=== PATIENT | male | born 1980 | race Caucasian/White ===

== ENCOUNTER 2022-11-20 07:57 | Emergency (ER) | payer SELFPAY ==
--- NOTE | 2022-11-20 08:24 | PC.NURSE ---
Pt reports his bleeding has almost stopped and he is going to his ENT office.
== END 2022-11-20 08:24 | disposition left against medical advice (07) ==
LOC: ANHED 08:49
DX: Z53.21 Procedure and treatment not carried out due to patient leaving prior to being seen by health care provider (principal)
CPT/HCPCS: 99199

== ENCOUNTER 2022-11-23 14:42 | Emergency (ER) | payer BC, SELFPAY ==
[2022-11-23 14:54] VITALS: BP 64/39; PULSE 64; RESP 18; TEMP 36.7; O2SAT 100
--- NOTE | 2022-11-23 15:00 | ED.EPISTAXIS ---
HPI - Epistaxis General Chief complaint: Epistaxis Stated complaint: nosebleed Time Seen by Provider: 11/23/22 15:00 History of Present Illness HPI Narrative: Patient is a 42-year-old male presenting with epistaxis. Patient reports having a septoplasty earlier this month for a deviated septum. States that he had to go back to the OR again following the procedure to have some packing removed. Since these procedures, patient has had intermittent nosebleeds. He has been calling his plastic surgeon who keeps telling him to just use more Afrin. Unfortunately, the bleeding has continued. Today he was at work when he leaned forward and again began bleeding from his nose. He was able to control it with direct pressure. States that he feels lightheaded. Denies any pain. No shortness of breath. Related Data Allergies Allergy/AdvReac Type Severity Reaction Status Date / Time No Known Allergies Allergy Verified 11/23/22 15:01 Review of Systems Review of Systems: All systems reviewed & are unremarkable except as noted in HPI and below PMFSH Social History Social History (Updated 11/23/22 @ 16:33 by Danii Charles, [facility]) Smoking status: Never smoker Lack of Transportation: No Lack of Food: Never True Current Housing: I Have Housing Concerned About Future Housing: No Difficulty Paying Gas/Electric Bills: No Difficulty Paying for Meds: No Currently Unemployed: No Education: Trade/Vocational Certificate Difficulty w/ Childcare or Family Care: No Exam Narrative: GENERAL: Laying in bed with his eyes closed, in no acute distress HEAD: Normocephalic, atraumatic. EYES: PERRLA and EOMI. ENT: Large clot left nare, nasal clamp is in place NECK: Supple. CHEST: Clear to auscultation. No respiratory distress. HEART: Regular rate and rhythm. No murmur heard. Normal peripheral pulses. ABDOMEN: Soft, nontender, nondistended, normal active bowel sounds. EXTREMITIES: Normal range of motion. No edema. SKIN: Warm, dry, no rash. NEURO: No focal deficits. Alert and oriented x3. PSYCH: Normal mood and affect. Course Vital Signs Vital signs: Vital Signs Temperature 98.1 F 11/23/22 14:54 Pulse Rate 64 11/23/22 14:54 Respiratory Rate 18 11/23/22 14:54 Blood Pressure 64/39 L 11/23/22 14:54 Pulse Oximetry 100 11/23/22 14:54 Oxygen Delivery Room Air 11/23/22 14:54 Temperature 98.1 F 11/23/22 14:54 Pulse Rate 68 11/23/22 16:05 Respiratory Rate 12 11/23/22 16:05 Blood Pressure 122/72 11/23/22 16:05 Pulse Oximetry 100 11/23/22 16:05 Oxygen Delivery Room Air 11/23/22 14:54 MDM - Epistaxis MDM Narrative Medical decision making narrative: Patient is a 42-year-old male presenting with recurrent epistaxis in the setting of recent septoplasty. Patient is hypotensive on arrival. Fluids have been started. The bleeding is controlled with a nasal clamp at this time. Call out to ENT. Hemoglobin is 15.5. Spoke with Dr. Grimes with ENT who advises that the patient come straight to his clinic. Patient's vital signs have dramatically improved. His blood pressure is 120s over 60s. Suspect there may have been a vagal component to his earlier hypotension given his reassuring blood work. The bleeding remains controlled with the nasal clamp. Patient will be discharged with instruction to go straight to the ENT clinic. Patient and the patient's voice understanding. Differential Diagnosis Differential diagnosis: Likely anterior epistaxis and posterior epistaxis Lab Data 11/23/22 15:08 11/23/22 15:08 Labs: Lab Results 11/23/22 11/23/22 11/23/22 Range/Units 15:08 15:08 15:08 WBC 7.4 (4.5-10.0) K/mm3 RBC 4.93 (4.6-6.20) M/mm3 Hgb 15.5 (14.0-18.0) g/dL Hct 45.8 (42.0-52.0) % MCV 92.9 (80-100) fl MCH 31.4 (26-34) pg MCHC 33.8 (32-36) g/dl RDW 13.1 (11.5-14.5) % Plt Count 362 (150-375) k/mm3 MPV 8.9 (7.
[2022-11-23] MEDS: SODIUM CHLORIDE 0.9% IV 1,000 ML 999 ML IV CONT (15:02)
[2022-11-23] MEDS: TRANEXAMIC ACID 1,000MG/ISO100 1,000 MG/100 ML BAG 200 MG IVPB (15:03)
[2022-11-23 15:15] LABS: Basophils Absolute Auto 0.1 K/mm3 (0.0-0.1); Basophils Percent Auto 0.7 % (0.2-1.2); Eosinophils Absolute Auto 0.1 K/mm3 (0-0.3); Eosinophils Percent Auto 1.5 % (0-4.4); Hematocrit 45.8 % (42.0-52.0); Hemoglobin 15.5 g/dL (14.0-18.0); Immature Granulocyte Absolute 0.03 K/mm3 (0.00-0.031); Immature Granulocyte Percent A 0.4 % (0-0.5); Lymphocytes Absolute Auto 2.26 K/mm3 (0.9-3.2); Lymphocytes Percent Auto 30.5 % (18.3-44.2); Mean Corpuscular HGB Conc 33.8 g/dl (32-36); Mean Corpuscular Hemoglobin 31.4 pg (26-34); Mean Corpuscular Volume 92.9 fl (80-100); Mean Platelet Volume 8.9 fl (7.4-10.4); Monocytes Absolute Auto 0.8 K/mm3 (0.1-0.6); Monocytes Percent Auto 10.8 % (2.6-8.5); Neutrophils Absolute Auto 4.2 K/mm3 (1.3-6.7); Neutrophils Percent Auto 56.1 % (45.5-73.1); Platelet Count Result 362 k/mm3 (150-375); Red Blood Count 4.93 M/mm3 (4.6-6.20); Red Cell Distribution Width 13.1 % (11.5-14.5); White Blood Count 7.4 K/mm3 (4.5-10.0)
[2022-11-23 15:19] VITALS: BP 113/64; PULSE 65; RESP 15; O2SAT 100
[2022-11-23 15:24] LABS: Alanine Aminotransferase 45 U/L (6-50); Albumin Level 4.2 g/dL (3.5-5.1); Alkaline Phosphatase 43 U/L (38-126); Anion Gap 8 mmol/L (8-16); Aspartate Amino Transferase 32 U/L (17-59); Bilirubin,Total 0.4 mg/dL (0.2-1.3); Blood Urea Nitrogen 24 mg/dL (9-20); Calcium 9.2 mg/dL (8.4-10.2); Carbon Dioxide 28 mmol/L (22-30); Chloride 100 mmol/L (98-107); Estimated CRCL calculation 63 ml/min; Estimated Glomerular Filt Rate 60; Glucose 115 mg/dL (65-110); Potassium 3.5 mmol/L (3.4-5.0); Sodium 136 mmol/L (137-145)
[2022-11-23 15:25] LABS: Lactic Acid Reflex 2.1 mmol/L (0.7-2.0)
[2022-11-23 15:34] LABS: Prothrombin Time 12.6 Seconds (11.1-14.7)
[2022-11-23 15:35] LABS: Partial Thromboplastin Time 24.1 SECONDS (22.3-36.8)
[2022-11-23 15:42] VITALS: BP 127/72; PULSE 77; RESP 17; O2SAT 97
[2022-11-23 16:05] VITALS: BP 122/72; PULSE 68; RESP 12; O2SAT 100
[2022-11-23 18:13] LABS: Reflex Lactic Acid Yes or No Add Lactic
== END 2022-11-23 16:06 | disposition home or self-care (01) ==
PROVIDERS: Emergency Provider Emergency Medicine
DX: R04.0 Epistaxis (principal)
CPT/HCPCS: 36415; 80053; 83605; 85025; 85610; 85730; 86850; 86900; 86901; 96365; 96375; 99284; J0131; J7030